=== PATIENT | male | born 1965 | race Caucasian/White ===

== ENCOUNTER 2024-11-08 14:07 | Emergency (ER) | payer OTHER, SELFPAY ==
--- OUTSIDE RECORDS SUMMARY | 2015-12-03 06:46 | XMS_ITS | Continuity of Care Document ---
Author Organization [facility] Address [address] [facility] [address] [place] [address] Phone Care Team Providers Care Clam Dredge Boat Captain Name Role Phone Brijesh Page MD Unavailable Unavailab le Allergies, Adverse Reactions, Alerts Substance Reaction Status Criticality No Known Allergies Active No Inform ation Medications Medication Instructions Dosage Effective Dates (start - stop) Status Comments LEXAPRO (unknown strength) Not Available - Active XARELTO (unknown strength) Not Available - Active Procedures Procedure Date OFFICE/OUTPATIENT VISIT [facility] Advance Directives Directive Yes / No Effective Date File Name No Information Encounters Encounter Description Practice Location Reason(s) For Visit Diagnoses Date Provider Providers Copied on Encounter [facility], [address] [place] [address], [address], tel:[phone] [facility] No Information 6 Kaylee Coley. [address] [facility] [address], [place], [place], [id number]. tel:[phone] OFFICE/OUTPA TIENT VISIT [facility], [address] [place] [address] [address], [place], [address], tel:[phone] [facility] EVAL LT SMALL FINGER (chief complaint) Contracture of joint of finger of left hand 6 Kaylee Coley. [address], [place], [place], [id number]. tel:[phone] Family History Family Member Type Diagnosis Age At Onset Mother Problem (finding) Alive and well Payers Payer name Insurance type Covered constitution party ID Authoriza tion(s) [email or web address] Employees E2 OT [id number] Social History Type Description Quantity Date Captured Comments Alcohol Use Details Unknown Caffeine Use Details Unknown Tobacco Use Status Smoking Status No Information Sex Male Chief Complaint And Reason For Visit No Information Reason For Referral Reason For Referral No Information Plan Of Treatment Date Type Action Status Referral Ordered: RADEX FNGR MINIMUM 2 VIEWS LT ordered Referral Ordered: RADEX FNGR MINIMUM 2 VIEWS RT ordered History Of Present Illness Encounter Date Complaint History Of Prese nt Illness EVAL LT SMALL FINGER Functional Status Date Functional Assessmen t No Information Instructions Date Instruction Additional Infor mation No Information Assessments Type Assessment Date No Information Patient Care Teams Name Effective Dates (start - stop) Status Members No Information
[2024-11-08 14:13] VITALS: BP 144/72; PULSE 73; RESP 16; TEMP 36.4; O2SAT 99; BMI 27.2
--- OUTSIDE RECORDS SUMMARY | 2024-11-08 14:14 | XMS_ITS | Clinical Summary ---
Author Organization [facility] Address [address] [facility] [place] [address] Care Team Providers Care Cash Clerk Name Role Phone ApolloPacotyler WAGNER Primary Care Provider [phone] Jany Gutierrez HYDRAULIC ELEVATOR CONSTRUCTOR-INSPECTOR GOLF BALL Unavailable [phone] Source Comments [facility],non-owned Affiliates and Associated Physician Practices is amultiple site organization consisting of ambulatory clinics and hospital sitesin [place], [place], [place] and [place]. This disclosure is being madepursuant to the Care Everywhere program and may not contain all information available regarding this patient. Last updated 17.[facility] Allergies No known active allergies Medications * Be aware that medications may not be up to date on this document. Alwaysverify current medications with the patient. cetirizine (ZyrTEC) 10 MG tablet Take 1 mg by mouth once daily Active Multiple Vitamin (MULTI VITAMIN MENS PO) Take 1 tablet by mouth once daily Active zolpidem (Ambien) 5 MG tabletIndications:P rimary insomnia Take 1 (one) tablet by mouth nightly as needed for Insomnia 30 tablet 3 Active rosuvastatin (Crestor) 10 MG tabletIndications:M ixed hyperlipidemia Take 1 (one) tablet by mouth once daily 100 tablet 4 4 Active escitalopram (Lexapro) 10 MG tabletIndications:M oderate episode of recurrent major depressive disorder (HCC) TAKE 1 TABLET BY MOUTH EVERY DAY 90 tablet 4 Active Xarelto 15 MG tabletIndications:R ecurrent pulmonary embolism (HCC) Take 1 Tablet (15 mg) by mouth daily. 90 tablet 3 5 Active baclofen (Lioresal) 10 MG tabletIndications:M uscle spasm,Left hamstring injury, initial encounter Take 1 Tablet (10 mg) by mouth 3 times daily as needed for Muscle Spasms. May cause drowsiness. 30 tablet 1 5 Active losartan (Cozaar) 100 MG tabletIndications:E ssential hypertension Take 1 (one) tablet by mouth once daily 100 tablet 5 Active Hospital, Clinic, or Other Facility Administered Medication Ordered Dose Route Frequency Start Date End Date Status 0.9% NaCl injection 10 mLIndications:Precordial pain 10 mL IK PRN 11/26/2021 Active Active Problems Problem Noted Date Diagnosed Date Type 2 diabetes mellitus wit h hyperglycemia, without long-term current use of insulin 02/07/2023 Precordial pain 10/22/2021 Bilateral carpal tunnel syndrome 02/19/2020 Paresthesia 12/31/2019 Overview (02/19/2020): Last Assessment & Plan: ncs BUE History of total knee replacement, right 019 Primary osteoarthritis of right knee 10/15/2018 Severe obesity (BMI 35.0-39.9) with comorbidity 10/15/2018 Essential hypertension 11/23/2017 Overview (02/19/2020): Last Assessment & Plan: Patient is well controlled. Continue current treatment. Hx of deep venous thrombosis 10/30/2017 Overview (02/19/2020): Last Assessment & Plan: Remains on xarelto Hx of pulmonary embolus 10/30/2017 Environmental and seasonal allergies 10/30/2017 Primary osteoarthritis of left knee 10/30/2017 Elevated cholesterol 06/30/2017 Anxiety and depression 03/22/2015 Overview (02/19/2020): Last Assessment & Plan: Patient is well controlled. Continue current treatment. Tobacco use 03/22/2015 Overview (02/19/2020): Last Assessment & Plan: Discussed screening CT chest Sleep apnea 10/18/2011 Obstructive sleep apnea 09/19/2011 Resolved Problems Problem Noted Date Diagnosed Date Resolved Date Hypersomnia with sleep apnea 04/26/2023 12/06/2023 Weight gain 04/26/2023 12/06/2023 Recurrent pulmonary embolism 12/24/2020 12/06/2023 Overview (12/24/2020): Chaim Bustillos DO on 09/25/20 Moderate episode of recurren t major depressive disorder 12/24/2020 12/06/2023 Overview (12/24/2020): Chaim Bustillos DO (Physician) : 09/25/2020 Acute blood loss as cause of postoperative anemia 02/19/2020 12/06/2023 Gout 02/19/2020 05/12/2022 Cellulitis 06/27/2019 12/06/2023 Overview (02/19/2020): Last Assessment & Plan: Keflex 250 mg qid 7 days Elbow pain, left 05/20/2019 05/12/2022 Overview (02/19/2020): Last Assessment & Plan: xr Lab Keflex 250 Annual physical exam 12/19/2018 024 Overview (02/19/2020): Last Assessment & Plan: Routine lab Obesity (BMI 35.0-39.9 without comorbidity) 10/15/2018 12/06/2023 Status post total left knee replacement using cement 04/27/2018 12/06/2023 Insomnia 06/30/2017 12/06/2023 Contracture of joint of finger 12/02/2015 12/06/2023 Encounters Date Type Department Care Team Description 10/17/2024 Travel 10/06/2024 Refill [facility] Medicine [address] [place] [address], [address] [place] [address] Chaim Bustillos DO Refill Request from Last 3 Months Immunizations Immunization Administration Dates Next Due INFLUENZA VACCINE, TRIV. (AF LURIA, FLUZONE TRIVALENT; 6MO+) (IIV3) 02/17/2011 Covid Pfizer primary monoval ent 12+ yr 0.3mL Purple cap 06/29/2020,06/08/2020 INFLUENZA VACCINE, QUADR. (F LUZONE; FLULAVAL; FLUARIX; AFLURIA QUADRIVALENT; 6MO+), 0.5 ML (IIV4) 03/24/2015 Zoster Hzv Vacc Recombinant Inj Im 12/06/2023 Family History Medical History Relation Name Comments Arthritis - Rheumatoid Father Other - Cardiac Father Diabetes; unknown type Mother Relation Name Status Comments Father Mother Social History Tobacco Use Types Packs/Day Years Used Date Smoking Tobacco: Every Day Cigarettes 1 35 Smokeless Tobacco: Never Tobacco Cessation:Ready to Q uit: Not Asked; Counseling Given: Not Answered Alcohol Use Standard Drinks/Week Comments Yes 0 (1 standard drink = 0.6 oz pur e alcohol) 2023 - 2X PER WEEK AUDIT-C Answer Date Recorded Q1: How often do you have a drink containing alcohol? 4 or more times a week 02/19/2020 Q2: How many drinks containi ng alcohol do you have on a typical day when you are drinking? 1 or 2 0 Frequency of Binge Drinking Not on file 02/08 PHQ-2 Answer Date Recorded Patient Health Questionnaire-2 Score 0 12/06/2023 Sex and Gender Information Value Date Recorded Sex Assigned at Male 05/20/2020 10:54 AM FIBERGLASS LAMINATOR Legal Sex Male 10:07 AM CDT Gender Identity Male 05/20/2020 10:54 AM FIBERGLASS LAMINATOR Sexual Orientation Straight 05/20/2020 10 :54 AM FIBERGLASS LAMINATOR Last Filed Vital Signs Vital Sign Reading Time Taken Comments Blood Pressure 135/86 12/06/2023 9:18 AM CDT Pulse 70 12/06/2023 9:18 AM CDT Temperature 36.7 C (98 F) 12/15/2022 2:41 PM CDT Respiratory Rate 18 12/06/2023 9:18 AM CDT Oxygen Saturation 96% 12/06/2023 9:18 AM CDT Inhaled Oxygen Concentration - - Weight 118.3 kg (260 lb 12.8 oz) 12/06/2023 9:18 AM CDT Height 177.8 cm (5' 10 ) 12/06/2023 9:18 AM CDT Body Mass Index 37.42 12/06/2023 9:18 AM CDT Plan of Treatment Health Maintenance Due Date Last Done Comments COLOGUARD (AGES 45-75) - COLON CA SCREENING 1965 CT COLONOGRAPHY - COLON CA SCREENING 1965 FIT - COLON CA SCREENING 1965 FLEX SIG - COLON CA SCREENING 1965 HIV SCREENING 02/06/1980 HEPATITIS C SCREENING 02/01/1983 DTAP/TDAP/TD VACCINES (1 - Tdap) 02/06/1984 HEPATITIS B VACCINE (1 of 3 - 19+ 3-dose series) 02/06/1984 PNEUMOCOCCAL VACCINE 50+ (1 of 2 - PCV) 02/06/1984 DIABETES RETINOPATHY SCREENING 12/07/2023 DIABETES-FOOT EXAM WITH MONOFILAMENT 12/07/2023 COVID-19 VACCINE (3 - 2023- season) 2023 06/29/2020, 06/08/2020 ZOSTER VACCINE (2 of 2) 01/31/2024 12/06/2023 DEPRESSION SCREENING 04/10/2024 12/06/2023, 12/15/2022, 12/15/2022, Additional history exists DIABETES - URINE PROTEIN SCREENING 04/10/2024 DIABETES-HGB A1C 06/07/2024 12/06/2023, , 10/02/2020 DIABETES-SERUM CREATININE 12/05/20242023, 12/21/2022, 10/18/2021, Additional history exists INFLUENZA VACCINE (#1) 2024 03/24/2015, 2010 LUNG CANCER SCREENING 06/27/2025 06/27/2024 , 06/27/2024, 03/14/2020 COLON MONITORING 03/01/2029 03/01/2019 COLONOSCOPY - COLON CA SCREENING 03/01/2029 03/01/2019, 03/01/2019 (Done Outside Per Report) Colorectal Cancer Screening 03/01/2029 HIB VACCINE Aged Out No longer eligi ble based on patient's age to complete this topic HPV VACCINE Aged Out No longer eligi ble based on patient's age to complete this topic MENINGOCOCCAL (Group B) VACCINE SHARED DECISION-MAKING Aged Out No longer eligible based on patient's age to complete this topic MENINGOCOCCAL GROUPS A/C/Y/W VACCINE Aged Out No longer eligible based on patient's age to complete this topic Procedures Procedure Name Priority Date/Time Associated Diagnosis Comments COMPREHENSIVE METABOLIC PANEL Routine 12/06/2023 10:30 AM CDT Well adult exam HEMOGLOBIN A1C Routine 12/06/2023 10:30 AM CDT Well adult exam Prediabetes CT LUNG SCREEN LOW DOSE Routine 03/14/2020 9:33 AM FIBERGLASS LAMINATOR Cigarette nicotine dependence without complication Encounter for screening for lung cancer COLONOSCOPY 03/01/2019 from Last 3 Months or Most Recently Relevant to Health Maintenance Results * (ABNORMAL) HEMOGLOBIN A1C (12/06/2023 10:30 AM CDT) Hemoglobin A1c 6.8(H) <5.7 % of total Hgb [facility] Comment: For someone without known diabetes, a hemoglobin A1c value of 6.5% or greater indicates that they may have diabetes and this should be confirmed with a follow-up test. For someone with known diabetes, a value <7% indicates that their diabetes is well controlled and a value greater than or equal to 7% indicates suboptimal control. A1c targets should be individualized based on duration of diabetes, age, comorbid conditions, and other considerations. Currently, no consensus exists regarding use of hemoglobin A1c for diagnosis of diabetes for children. This test was performed on the Sumi skip c503 platform. Effective 06/26/23, a change in test platforms from the [employer] Neck Fitter to the Sumi skip c503 may have shifted HbA1c results compared to historical results. Based on laboratory validation testing conducted at [facility], the Sumi platform relative to the [employer] platform had an average increase in HbA1c value of < or = 0.3%. This difference is within accepted variability established by the National Glycohemoglobin Standardization Program. Note that not all individuals will have had a shift in their results and direct comparisons between historical and current results for testing conducted on different platforms is not recommended. REPORT COMMENT: FASTING:YES Test Performed at: [facility] [address] ELSI MURPHY MD Blood BLOOD SPECIMEN / Unknown 12/06/2023 10:30 AM CDT 12/06/2023 10:31 AM CDT Chaim [place] DO LAB - CHEMISTRY ORDERABLES Fin al Result Performing Organization Address [facility] Co de Phone Number [facility] [address] [place] [address] * COMPREHENSIVE METABOLIC PANEL (12/06/2023 10:30 AM CDT) [facility] Glucose 99 65 - 99 mg/dL [facility] Comment: Fasting reference interval BUN 16 7 - 25 mg/dL [facility] Creatinine 0.85 0.70 - 1.30 mg/dL [facility] eGFR by Cystatin C 101 > OR = 60 mL/min/1. 73m2 [facility] BUN/Creatinine Ratio SEE NOTE: 6 - 22 (calc) [facility] Comment: Not Reported: BUN and Creatinine are within reference range. Sodium 136 135 - 146 mmol/L [facility] Potassium 4.0 3.5 - 5.3 mmol/L [facility] Chloride 100 98 - 110 mmol/L [facility] CO2 23 20 - 32 mmol/L [facility] Calcium 9.4 8.6 - 10.3 mg/dL [facility] Protein Total 6.6 6.1 - 8.1 g/dL [facility] Albumin 4.3 3.6 - 5.1 g/dL [facility] Globulin Total 2.3 1.9 - 3.7 g/dL (calc) [facility] Albumin/Globulin Ratio 1.9 1.0 - 2.5 (calc) [facility] Bilirubin Total 0.5 0.2 - 1.2 mg/dL [facility] Alkaline Phosphatase 71 35 - 144 U/L [facility] AST 29 10 - 35 U/L [facility] ALT 33 9 - 46 U/L [facility] Comment: Test Performed at: [facility] [address] [id number] ELSI MURPHY MD Blood BLOOD SPECIMEN / Unknown 12/06/2023 10:30 AM CDT 12/06/2023 10:31 AM CDT Chaim Apollo DO LAB - CHEMISTRY ORDERABLES Fin al Result Performing Organization Address [facility] de Phone Number [facility] [address] [place] [address] * CT LUNG SCREEN LOW DOSE (03/14/2020 9:33 AM FIBERGLASS LAMINATOR) Anatomical Region Laterality Modality Chest Computed Tomogra phy 03/14/2020 9:44 AM FIBERGLASS LAMINATOR Impressions 03/14/2020 9:46 AM FIBERGLASS LAMINATOR No suspicious pulmonary nodules. Lung-RADS category 1-negative. 12 month follow-up low-dose CT is recommended. ACR Lung-RADS Category/Recommendations: 0: Need prior comparisons or additional images 1: Negative: 12 month follow up LDCT (Low Dose CT) 2: Benign Appearin month follow up LDCT 3: Probably Benign: 6 month follow up LDCT 4A: Suspicious: 3 month follow up LDCT (or immediate PET if >7mm solid component) 4B: Suspicious: Immediate Chest CT or PET if >7mm solid component 4X: Cat 3 or 4A nodules with additional suspicious findings Modifier- S : Significant NON-lung cancer findings Modifier- C : Prior treated Lung Cancer. For details of the ACR Lung-RADS program, categories and recommendations: 1) http://www.acr.org/Quality-Safety/Resources/LungRADS 2) Internet search: Lung-RADS Lung Cancer Screening 3) Contact [facility] thoracic nurse coordinator ([phone]) *Reading Radiologist: Priyank Hernandez on 03/14/2020 at 9:46 AM Narrative 03/14/2020 9:[address] chest without contrast. HISTORY: Lung Cancer Screening. Current everyday smoker. 1 pack a day for 35 years. 35 pack year smoking history. TECHNIQUE: Helical CT acquisition of chest without intravenous iodinated contrast. Low dose technique optimized for lung nodule detection. COMPARISON: None. FINDINGS: There is no suspicious pulmonary nodule or mass. Mild bronchial wall thickening is noted. No acute airspace disease seen. There is no supraclavicular or axillary lymphadenopathy. No mediastinal or hilar lymphadenopathy. Calcific plaque is noted in the coronary arteries. No pleural pericardial effusion. Limited views of the upper abdomen unremarkable. Procedure Note Priyank Hernandez MD - 03/14/2020 CT chest without contrast. HISTORY: Lung Cancer Screening. Current everyday smoker. 1 pack a day for 35 years. 35 pack year smoking history. TECHNIQUE: Helical CT acquisition of chest without intravenous iodinated contrast. Low dose technique optimized for lung nodule detection. COMPARISON: None. FINDINGS: There is no suspicious pulmonary nodule or mass. Mild bronchial wall thickening is noted. No acute airspace disease seen. There is no supraclavicular or axillary lymphadenopathy. No mediastinal or hilar lymphadenopathy. Calcific plaque is noted in the coronary arteries. No pleural pericardial effusion. Limited views of the upper abdomen unremarkable. IMPRESSION No suspicious pulmonary nodules. Lung-RADS category 1-negative. 12 month follow-up low-dose CT is recommended. ACR Lung-RADS Category/Recommendations: 0: Need prior comparisons or additional images 1: Negative: 12 month follow up LDCT (Low Dose CT) 2: Benign Appearin month follow up LDCT 3: Probably Benign: 6 month follow up LDCT 4A: Suspicious: 3 month follow up LDCT (or immediate PET if >7mm solid component) 4B: Suspicious: Immediate Chest CT or PET if >7mm solid component 4X: Cat 3 or 4A nodules with additional suspicious findings Modifier- S : Significant NON-lung cancer findings Modifier- C : Prior treated Lung Cancer. For details of the ACR Lung-RADS program, categories and recommendations: 1) http://www.acr.org/Quality-Safety/Resources/LungRADS 2) Internet search: Lung-RADS Lung Cancer Screening 3) Contact [facility] thoracic nurse coordinator ([phone]) *Reading Radiologist: Priyank Hernandez on 03/14/2020 at 9:46 AM Chaim Bustillos DO CT ORDERABLES Final Result * COLONOSCOPY (03/01/2019) 03/01/2019 Narrative 03/01/2019 Ordered by an unspecified provider. us Scanned Document SCANNING ONLY Final Result from Last 3 Months or Most Recently Relevant to Health Maintenance Insurance [facility] Care Teams Cash Clerk Relationship Specialty Start Date End Date Chaim Bustillos DO [address] [address] PCP - General Family Medicine 02/12/20 Jany Gutierrez, MICHELLE-INSPECTOR GOLF BALL [address] [facility] [address] [place] [id number] Nurse Practitioner Internal Medicine Sleep Medicine 04/26/23
--- OUTSIDE RECORDS SUMMARY | 2024-11-08 14:14 | XMS_ITS | Clinical Summary ---
Author Organization [facility] Address [address] [place] [address] Care Team Providers Care Nuclear Logging Engineer Name Role Phone Unavailable Primary Care Provider Unavailabl e Social History Tobacco Use Types Packs/Day Years Used Date Smoking Tobacco: Never Assessed Sex and Gender Information Value Date Recorded Sex Assigned at Not on file Legal Sex Male 4:30 PM CDT Gender Identity Not on file Sexual Orientation Not on file Plan of Treatment Health Maintenance Due Date Last Done Comments Colorectal Cancer Screening Colonoscopy (10 Years) 1965 Annual Physical 02/06/1968 Hepatitis C 1983 DTaP, Tdap and Td Vaccines ( 1 - Tdap) 02/06/1984 Pneumococcal Vaccine: 50+ Ye ars (1 of 1 - PCV) 2015 Zoster Vaccines (1 of 2) 2015 COVID-19 Vaccine ( - 2023-2 5 season) 2023 Meningococcal B Vaccine Aged Out No l onger eligible based on patient's age to complete this topic Meningococcal Vaccine Aged Out No jami niesha eligible based on patient's age to complete this topic RSV Immunizations Under 20 Months Aged Out No longer eligible based on patient's age to complete this topic
--- OUTSIDE RECORDS SUMMARY | 2024-11-08 14:15 | XMS_ITS | Clinical Summary ---
Author Organization [facility] at the [facility] Address [address] [place] [address] Care Team Providers Care Produce Clerk Name Role Phone Elver Beebe Jonatan Primary Care Provider + Allergies No known active allergies Medications escitalopram (LEXAPRO) 10 mg tablet Take 1 tablet (10 mg total) by mouth daily 90 tablet 3 9 Active Additional Information Patient not taking.Reported on 12/31/2019 zolpidem (AMBIEN) 5 mg tablet Take 1 Tablet (5 mg) by mouth daily at bedtime. 30 tablet 5 0 Active cyclobenzaprine HCl (FLEXERIL ORAL) 10 mg 2 (two) times a day 8 Active cephalexin (KEFLEX) 250 mg capsule Take 250 mg by mouth 4 (four) times a day 0 Active cetirizine (ZyrTEC) 5 mg tablet Take 5 mg by mouth daily Active Xarelto 15 mg tablet TAKE 1 TABLET BY MOUTH DAILY 30 tablet 1 Active losartan (COZAAR) 50 mg tablet TAKE 1 TABLET BY MOUTH DAILY 90 tablet 1 1 Active Active Problems Problem Noted Date Diagnosed Date Paresthesia 12/31/2019 Assessment & Plan (12/31/2019 4:34 PM CDT): ncs BUE Cellulitis 06/27/2019 Assessment & Plan (10/17/2019 8:13 AM CDT): Keflex 250 mg qid 7 days Assessment & Plan (06/27/2019 11:41 AM CDT): Keflex 250 qid 10 days Lasix 20 mg daily 1 week bnp cbc Elbow pain, left 05/20/2019 Assessment & Plan (05/20/2019 2:55 PM AEROSPACE TECHNICIAN): xr Lab Keflex 250 Annual physical exam 12/19/2018 Assessment & Plan (12/19/2018 8:55 AM CDT): Routine lab Essential hypertension 11/23/2017 Assessment & Plan (12/31/2019 4:34 PM CDT): Patient is well controlled. Continue current treatment. Assessment & Plan (12/19/2018 8:55 AM CDT): Patient is well controlled. Continue current treatment. Hx of deep venous thrombosis 10/30/2017 Assessment & Plan (12/19/2018 8:56 AM CDT): Remains on xarelto Hx of pulmonary embolus 10/30/2017 Elevated cholesterol 06/30/2017 Insomnia 06/30/2017 Anxiety and depression 03/22/2015 Assessment & Plan (12/19/2018 8:55 AM CDT): Patient is well controlled. Continue current treatment. Tobacco use 03/22/2015 Assessment & Plan (12/31/2019 4:41 PM CDT): Discussed screening CT chest Obstructive sleep apnea 09/19/2011 Immunizations Immunization Administration Dates Next Due Influenza, Quadrivalent, Spl it, Preservative Free, Intramuscular 03/24/2015 Influenza, Trivalent, IM (MDV) 02/17/2011 Surgical History Surgery Date Site/Laterality Comments KNEE SURGERY Bilateral ANTERIOR CRUCIATE LIGAMENT REPAIR Bilateral Left twice, right once COLONOSCOPY 06/09/2015 - 07/09/2015 REPLACEMENT TOTAL KNEE 10/08/2017 - 11/07/2017 Left REPLACEMENT TOTAL KNEE 03/04/2019 Right Medical History Medical History Date Comments Hypertension Hyperlipidemia Family History Medical History Relation Name Comments Cancer Brother 1 ad Irritable bowel syndrome Daughter Heart disease Father Hypertension Father Diabetes Mother Heart disease Mother Hypertension Mother Relation Name Status Comments Brother 1 ad Brother 2 Alive Daughter Alive Father Mother Sister 1 Alive Sister 2 Alive Son 1 Alive Son 2 Alive Social History Tobacco Use Types Packs/Day Years Used Date Smoking Tobacco: Every Day Cigarettes Smokeless Tobacco: Never Alcohol Use Standard Drinks/Week Comments Yes 0 (1 standard drink = 0.6 oz pur e alcohol) occasionally PHQ-2 Answer Date Recorded PHQ-2 Total Score (If total score is 3 or more points, staff should administer the PHQ-9) 0 12/31/2019 Personal Safety Answer Date Recorded Getting School Help Needed Not on file 06/24 Sex and Gender Information Value Date Recorded Sex Assigned at Not on file Legal Sex Male 6:27 PM AEROSPACE TECHNICIAN Gender Identity Not on file Sexual Orientation Not on file Obstetrics History Last Filed Vital Signs Vital Sign Reading Time Taken Comments Blood Pressure 142/84 12/31/2019 4:36 PM CDT Pulse 86 12/31/2019 3:46 PM CDT Temperature 36.4 C (97.5 F) 12/31/2019 3:46 PM CDT Respiratory Rate 16 10/17/2019 7:49 AM CDT Oxygen Saturation 98% 12/31/2019 3:46 PM CDT Inhaled Oxygen Concentration - - Weight 112.8 kg (248 lb 9.6 oz) 12/31/2019 3:46 PM CDT Height 177.8 cm (5' 10 ) 12/31/2019 3:46 PM CDT Body Mass Index 35.67 12/31/2019 3:46 PM CDT Plan of Treatment Not on file Insurance [employer] PREFERRED Member Subscriber Plan / Payer (Ef fective 2019-Present) Name:Jalen Quintanilla Relation to Subscriber:Self Name:Jalen Quintanilla Payer ID:[id number] ([facility]) Type:[facility] Address: [id number] [place] [id number] Care Teams Produce Clerk Relationship Specialty Start Date End Date Elver Beebe DO PCP - General Family Medicine 12/12/18
--- OUTSIDE RECORDS SUMMARY | 2024-11-08 14:15 | XMS_ITS | Encounter Summary ---
Author Organization [facility] Facility Care Team Providers Care Emergency Room Tech Name Role Phone Elver Beebe DO Primary Care Provider + Encounter Details Date Type Department Care Team (Latest Contact Info) Description 04/09/2015 Orders Only [facility]INCON[facility] Provider, MD Abner [address] [place] [id number] Social History Tobacco Use Types Packs/Day Years Used Date Smoking Tobacco: Never Assessed Sex and Gender Information Value Date Recorded Sex Assigned at Not on file Legal Sex Male 6:27 PM FACILITIES COORDINATOR Gender Identity Not on file Sexual Orientation Not on file documented as of this encounter Plan of Treatment Not on file documented as of this encounter Procedures Procedure Name Priority Date/Time Associated Diagnosis Comments SCAN - LABS 04/09/2015 12:00 AM FACILITIES COORDINATOR documented in this encounter Results * SCAN - LABS (04/09/2015 12:00 AM FACILITIES COORDINATOR) Narrative 04/09/2015 12:00 AM FACILITIES COORDINATOR Ordered by an unspecified provider. Historical Provider Final Res ult documented in this encounter Visit Diagnoses Not on filedocumented in this encounter Care Teams Emergency Room Tech Relationship Specialty Start Date End Date Elver Beebe DO PCP - General Family Medicine 12/12/18 documented as of this encounter
--- OUTSIDE RECORDS SUMMARY | 2024-11-08 14:15 | XMS_ITS | Clinical Summary ---
Author Organization 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 Active escitalopram oxalate (LEXAPRO) 10 mg tablet Take 1 Tablet (10 mg) by mouth daily. 90 Tablet 1 12/20/2023 6:09 PM CDT 4 Active rosuvastatin (CRESTOR) 10 mg tablet Take 1 Tablet (10 mg) by mouth daily. 100 Tablet 4 10/09/2024 12:47 PM CDT 4 Active rivaroxaban (Xarelto) 15 mg Tablet Take 1 Tablet (15 mg) by mouth daily. 90 Tablet 3 10/09/2024 12:47 PM CDT 5 Active acetaminophen (TYLENOL) 325 mg tablet Take 2 Tablets (650 mg) by mouth every 6 hours as needed for Other (See Comment) (See admin instructions ). 5 Active simethicone 125 mg Tablet, Chewable Take 1 Tablet (125 mg) by mouth every 6 hours as needed for Gas. 5 Active oxyCODONE (ROXICODONE) 5 mg tabletIndications :Acute appendicitis with localized peritonitis, without perforation or abscess, unspecified whether gangrene present Take 1 Tablet (5 mg) by mouth every 4 hours as needed for severe pain. Max Daily Amount: 30 mg 20 Tablet 08/25/2024 10:44 AM CDT 5 Active baclofen (LIORESAL) 10 mg tablet Take 1 Tablet (10 mg) by mouth 3 times daily as needed for Muscle Spasms. May cause drowsiness. 30 Tablet 1 10/07/2024 2:46 PM CDT 5 Active baclofen (LIORESAL) 10 mg tablet Take 1 Tablet (10 mg) by mouth 3 times daily as needed for muscle spasms. May cause drowsiness. 30 Tablet 1 5 Active losartan (COZAAR) 100 mg tablet Take 1 Tablet (100 mg) by mouth daily. 90 Tablet 5 Active losartan (COZAAR) 100 mg tablet Take 1 Tablet (100 mg) by mouth daily. 90 Tablet 1 5 Active baclofen (LIORESAL) 10 mg tablet Take 1 Tablet (10 mg) by mouth 3 times daily as needed for Muscle Spasms. May cause drowsiness. 30 Tablet 5 Active zolpidem (AMBIEN) 5 mg tablet Take 1 Tablet (5 mg) by mouth every night at bedtime. 30 Tablet 5 10/09/2024 12:47 PM CDT 5 Active Active Problems Problem Noted Date Diagnosed Date DUKES (dyspnea on exertion) 09/04/2024 Coronary artery calcification 09/04/2024 Acute appendicitis 08/20/2024 History of total knee replacement, right 019 Primary osteoarthritis of right knee 10/15/2018 Obesity (BMI 35.0-39.9 without comorbidity) 11/2018 Severe obesity (BMI 35.0-39.9) with comorbidity 10/15/2018 Status post total left knee replacement using ce ment 04/27/2018 Hx of deep venous thrombosis 10/30/2017 Hx of pulmonary embolus 10/30/2017 Primary osteoarthritis of left knee 10/30/2017 Environmental and seasonal allergies 10/30/2017 Tobacco use 03/22/2015 Anxiety and depression 03/22/2015 Sleep apnea 10/18/2011 Obstructive sleep apnea 09/19/2011 Gout Acute blood loss as cause of postoperative anemi a Resolved Problems Problem Noted Date Diagnosed Date Resolved Date Bilateral pulmonary embolism 03/22/2015 10/30/2017 Pain of left calf 03/22/2015 10/30/2017 Left knee pain 03/22/2015 10/30/2017 PE (pulmonary embolism) 10/20/201110/09 DVT of lower limb, acute 10/18/2011 Edema 10/18/2011 10/30/2017 Snoring 09/19/2011 10/30/2017 Encounters Date Type Department Care Team Description 11/07/2024 Results Follow-Up [facility] Gastroenterology [facility] [address] [facility] [address] [place] [address] Renato Barrientos, DO PATHOLOGY 10/29/2024 External Device Data STL ABSTRACTION Provider, Abstract 10/29/2024 External Device Data STL ABSTRACTION Provider, Abstract 10/23/2024 10:34 AM CDT Anesthesia Event [facility] GI Lab [facility] [address] [place] [address] Cory Hernandez MD 10/23/2024 10:00 AM CDT - 10/23/2024 10:30 AM CDT Surgery [facility] GI Lab [facility] [address] [place] [address] Renato Barrientos, DO COLONOSCOPY 10/23/2024 9:05 AM CDT - 10/23/2024 11:42 AM CDT Hospital Encounter [facility] GI Lab [place] [address] [place] [address] Renato Barrientos, DO Hx of colonic polyps Discharge Disposition: Home or Self Care 10/15/2024 External Device Data STL ABSTRACTION Provider, Abstract 09/25/2024 External Device Data STL ABSTRACTION Provider, Abstract 09/25/2024 External Device Data STL ABSTRACTION Provider, Abstract 09/24/2024 External Device Data STL ABSTRACTION Provider, Abstract 09/17/2024 External Device Data STL ABSTRACTION Provider, Abstract 09/17/2024 External Device Data STL ABSTRACTION Provider, Abstract 09/11/2024 Results Follow-Up [facility] Heart and Vascular At [facility] [address] [place] [address] Bj Cerrato MD NM MYOCARD PERF IMAG SPECT MULT 09/10/2024 1:47 PM CDT - 09/10/2024 11:59 PM CDT Hospital Encounter [facility] [address] [place] [address] Bj Cerrato MD Discharge Disposition: Home or Self Care 09/10/2024 1:13 PM CDT - 09/10/2024 11:59 PM CDT Hospital Encounter [facility] Non Invasive Cardiology [address] [place] [address] Bj Cerrato MD Discharge Disposition: Home or Self Care 09/10/2024 12:30 PM CDT - 09/10/2024 11:59 PM CDT Hospital Encounter [address] [address] Bj Cerrato MD Discharge Disposition: Home or Self Care 09/10/2024 External Device Data STL ABSTRACTION Provider, Abstract 09/10/2024 External Device Data STL ABSTRACTION Provider, Abstract 09/10/2024 External Device Data STL ABSTRACTION Provider, Abstract 09/05/2024 9:15 AM CDT Office Visit [facility] Trauma and General Surgery [address] [place] [address] [place] [phone] Mildred Harrison MD Acute appendicitis with localized peritonitis, without perforation or abscess, unspecified whether gangrene present (Primary Dx); Status post exploratory laparotomy 09/04/2024 10:15 AM CDT Office Visit [facility] Heart and Vascular At [place] [address] [facility] [address] [place] [address] Bj Cerrato MD DUKES (dyspnea on exertion) (Primary Dx); Hx of deep venous thrombosis; Coronary artery calcification 09/04/2024 Abstract [facility] Trauma and General Surgery [address] [place] [address] [place] [phone] Dipak Allen MD 08/30/2024 External Device Data STL ABSTRACTION Provider, Abstract 08/28/2024 External Device Data STL ABSTRACTION Provider, Abstract 08/21/2024 7:30 AM CDT Anesthesia Event [facility] Operating Room [address] [place] [address] Allison Fall MD Turnbough, Christopher J, PA 08/21/2024 7:15 AM CDT - 08/21/2024 9:07 AM CDT Surgery [facility] Operating Room [address] [place] [address] Partha Mock, MD Yong APPENDECTOMY 08/20/2024 External Device Data STL ABSTRACTION Provider, Abstract 08/20/2024 External Device Data STL ABSTRACTION Provider, Abstract 08/20/2024 External Device Data STL ABSTRACTION Provider, Abstract 08/19/2024 11:08 PM CDT - 08/25/2024 11:00 AM CDT Hospital Encounter [facility] Trauma and Surgery [address] [place] [address] Colton MARCH, Harsha Vogel, DO Amezquita, Simin De La Paz MD Respicio, MD Momo Quesada, MD Partha Angel Jr., Eddie, MD Bach, Mildred Macdonald MD Acute appendicitis Discharge Disposition: Home or Self Care 08/19/2024 Travel 08/13/2024 Abstract [facility] Hepatology [address] [place] [address] Edd Stark MD from Last 3 Months Immunizations Immunization Administration Dates Next Due INFLUENZA VACCINE QUADRIVALENT 3 YR UP PF IM Influenza Seasonal Unspecified Formulation IM Family History Medical History Relation Name Comments Hypertension Father Hypertension Maternal Grandfather Hypertension Maternal Grandmother Diabetes Mother Hypertension Mother Hypertension Paternal Grandfather Hypertension Paternal Grandmother Asthma Neg Hx Bronchitis Neg Hx Cancer Neg Hx Colon Cancer Neg Hx Emphysema Neg Hx Heart Failure Neg Hx Lung Cancer Neg Hx Mesothelioma Neg Hx Relation Name Status Comments Father Maternal Grandfather Maternal Grandmother Mother Paternal Grandfather Paternal Grandmother Social History Tobacco Use Types Packs/Day Years Used Date Smoking Tobacco: Former Cigarettes 1 30 Passive Smoke Exposure: Past Smokeless Tobacco: Never Tobacco Cessation:Counseling Given: Not Answered Comments:Quit May, 2024 Alcohol Use Standard Drinks/Week Comments Yes 4 (1 standard drink = 0.6 oz pur e alcohol) daily to weekly Sex and Gender Information Value Date Recorded Sex Assigned at Not on file Legal Sex Male 3:17 AM PATIENT ADMITTING REPRESENTATIVE Gender Identity Not on file Sexual Orientation Not on file Occupation Industry Job Start Date Job End Date Not on file Not on file Not on file Not on file Last Filed Vital Signs Vital Sign Reading Time Taken Comments Blood Pressure 127/79 10/23/2024 11:35 AM CDT Pulse 62 10/23/2024 11:35 AM CDT Temperature 36.1 C (96.9 F) 10/23/2024 11:21 AM CDT Respiratory Rate 18 10/23/2024 11:35 AM CDT Oxygen Saturation 100% 10/23/2024 11:35 AM CDT Inhaled Oxygen Concentration - - Weight 88.5 kg (195 lb) 10/23/2024 9:23 AM CDT Height 177.8 cm (5' 10 ) 10/23/2024 9:23 AM CDT Body Mass Index 27.98 10/23/2024 9:23 AM CDT Plan of Treatment Upcoming Encounters Date Type Department Care Team (Late st Contact Info) Description 01/02/2025 9:30 AM CDT Initial consult [facility] Hepatology [address] [place] [address] Edd Stark MD [address] [facility] [place] [address] 09/05/2025 10:45 AM CDT Office Visit [facility] Heart and Vascular At [facility] [address] [address] [place] [address] Bj Cerrato MD [address] [place] [address] Health Maintenance Due Date Last Done Comments DIABETES ANNUAL FOOT EXAM 1983 DIABETES ANNUAL RETINAL EXAM 1983 DIABETES MICROALBUMIN ANNUAL SCREEN 1983 LDL CHOLESTEROL ANNUAL 1983 DTAP/TDAP/TD VACCINES (1 - Tdap) 02/06/1984 HEPATITIS B VACCINES (1 of 3 - 19+ 3-dose series) 02/06/1984 FIT-DNA Q 3 years 2010 FIT/FOBT Q 1 year 2010 Flex Sig/CT Colonography Q 5 years 2010 COVID-19 Vaccine (3 - 2023-2 5 season) 2023 06/29/2020, 06/08/2020 ZOSTER VACCINE (2 of 2) 01/31/2024 12/06/2023 INFLUENZA VACCINE (#1) 2024 03/24/2015, 2010 DIABETES HBA1C Q 6 MONTHS 11/13/20242024, 12/06/2023, 10/02/2020 COLORECTAL SCREENING 10/23/2029 10/23/2024, 10/23/2024, 03/01/2019, Additional history exists Colorectal Cancer Screening 10/23/2029 Preventative Visit- Commercial Completed 0 05/01/2024, 12/06/2023, 07/07/2021, Additional history exists Lung Cancer Screening Discontinued 06/27/2024 Medical Devices Implanted Type Area Online Facilitator Device Identifier Shelf Expiration Date Model / Serial / Lot Barrier Seprafilm 3x5in [id number] - [id number] Implanted:Qty : 1 on 08/21/2024 by Yong Chavis Jr., MD at [facility] Adhesion Barrier N/A: Abdomen [employer] [id number] / / [id number] Cement Leggett Hv 40g [id number] - [id number] Implanted:Qty : 2 on 10/30/2017 by Angel Bush MD at [facility] Cement Left: Knee [employer] 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 [employer] 01/07/2019 600-15-000 / / [id number] Biomet Bone Cement Implanted:Qty : 2 on 03/04/2019 by Agnel Bush MD at [facility] Cement Right: Knee [employer]OM[employer] INC 01/07/2023 [id number] / / [id number] Description:ALL ROHAN BIOME T COMPONETS ON REQUISTION # [id number] Agent Hemostat Surgicel 4x8in 1952s - [id number] Implanted:Qty : 1 on 08/21/2024 by Yong Chavis Jr., MD at [facility] Hemostatic N/A: Abdomen J&J- [employer] [id number] 02/07/2029 1952S / / [id number] Comp Tib Cocr Finned 79mm 400115 - [id number] Implanted:Qty : 1 on 10/30/2017 by Angel Bush MD at [facility] Knee Left: Knee ROHAN [employer]ET [id number] 08/12/2027 [id number] / / [id number] Comp Fem Vngrd Cr Intrlk Lt 75mm 225968 - [id number] Implanted:Qty : 1 on 10/30/2017 by Angel Bush MD at [facility] Knee Left: Knee [employer]OHAN [employer] [id number] 08/26/2027 [id number] / / [id number] Patella 3peg Series A [id number] - [id number] Implanted:Qty : 1 on 10/30/2017 by Angel Bush MD at [facility] Knee Left: Knee ROHAN [employer] [id number] 09/05/2022 [id number] / / [id number] Brg Tib Vngrd Ant Stblzd 193050 - [id number] Implanted:Qty : 1 on 10/30/2017 by Angel Bush MD at [facility] Knee Left: Knee ROHAN [employer] [id number] 07/25/2022 [id number] / / [id number] Bearing Tib Vanguard Ant Stblzd 954644 - [id number] Implanted:Qty : 1 on 03/04/2019 by Angel Bush MD at [facility] Knee Right: Knee ROHAN [employer]ET [id number] 10/05/2023 [id number] / / [id number] Patella 3peg Series A [id number] - [id number] Implanted:Qty : 1 on 03/04/2019 by Angel Bush MD at [facility] Knee Right: Knee ROHAN [employer]ET 02/14/2024 [id number] / / [id number] Comp Fem Vanguard Cr Interlock Rt 72.5mm [id number] - [id number] Implanted:Qty : 1 on 03/04/2019 by Angel Bush MD at [facility] Knee Right: Knee ROHAN [employer]ET [id number] 02/08/2029 [id number] / / [id number] Comp Tib Cocr Finned 79mm [id number] - [id number] Implanted:Qty : 1 on 03/04/2019 by Angel Bush MD at [facility] Knee Right: Knee ROHAN BIOMET 01/14/2029 [id number] / / [id number] Procedures Procedure Name Priority Date/Time Associated Diagnosis Comments COLONOSCOPY REPORT 10/23/2024 11 :24 AM CDT PATHOLOGY Pathology 10/23/2024 11:11 AM CDT Hx of colonic polyps MA COLONOSCOPY FLX DX W/COLLJ SPEC WHEN PFRMD 10/23/2024 10:00 AM CDT Hx of colonic polyps NM MYOCARD PERF IMAG SPECT MULT Routine 09/10/2024 2:11 PM CDT Hx of deep venous thrombosis DUKES (dyspnea on exertion) Coronary artery calcification NM PHARMACOLOGICAL STRESS TEST Routine 09/10/2024 1:49 PM CDT Hx of deep venous thrombosis DKUES (dyspnea on exertion) Coronary artery calcification MA ECG ROUTINE ECG W/LEAST 12 LDS W/I&R Routine 09/04/2024 10:31 AM CDT Hx of deep venous thrombosis BASIC METABOLIC PANEL Routine 08/25/2024 8:48 AM CDT CBC WITH DIFFERENTIAL Routine 08/25/2024 8:48 AM CDT MAGNESIUM LEVEL Routine 08/25/2024 8:48 AM CDT PHOSPHORUS Routine 08/25/2024 8:48 AM CDT BASIC METABOLIC PANEL Routine 08/24/2024 9:51 AM CDT CBC WITH DIFFERENTIAL Routine 08/24/2024 9:51 AM CDT MAGNESIUM LEVEL Routine 08/24/2024 9:51 AM CDT PHOSPHORUS Routine 08/24/2024 9:51 AM CDT BASIC METABOLIC PANEL Routine 08/23/2024 9:18 AM CDT CBC WITH DIFFERENTIAL Routine 08/23/2024 9:18 AM CDT MAGNESIUM LEVEL Routine 08/23/2024 9:18 AM CDT PHOSPHORUS Routine 08/23/2024 9:18 AM CDT BASIC METABOLIC PANEL Routine 08/22/2024 8:04 AM CDT CBC WITH DIFFERENTIAL Routine 08/22/2024 8:04 AM CDT MAGNESIUM LEVEL Routine 08/22/2024 8:04 AM CDT PHOSPHORUS Routine 08/22/2024 8:04 AM CDT BASIC METABOLIC PANEL Routine 08/21/2024 12:51 PM CDT CBC WITH DIFFERENTIAL Routine 08/21/2024 12:51 PM CDT MAGNESIUM LEVEL Routine 08/21/2024 12:51 PM CDT PHOSPHORUS Routine 08/21/2024 12:51 PM CDT PATHOLOGY Pathology 08/21/2024 9:09 AM CDT MA ANES INSERT ENDOTRACHEAL AIRWAY Routine 08/21/2024 7:44 AM CDT LAPAROTOMY EXPLORATORY 7:15 AM CDT LAPAROSCOPY DIAGNOSTIC/OPERATIVE 08/21/2024 7:15 AM CDT WOUND CLOSURE VACUUM ASSISTED 08/21/2024 7:15 AM CDT APPENDECTOMY 08/21/2024 7:15 AM CDT URINALYSIS W/REFLEX MICROSCOPIC Stat 08/21/2024 12:03 AM CDT PTT Stat 08/20/2024 5:05 AM CDT PROTIME-INR Stat 08/20/2024 5:[address] ABDOMEN PELVIS W CONTRAST Stat 08/20/2024 3:02 AM CDT CBC WITH DIFFERENTIAL Stat 08/20/2024 12:58 AM CDT COMPREHENSIVE METABOLIC PANEL Stat 08/20/2024 12:55 AM CDT TYPE AND SCREEN Stat 08/20/2024 12:[address] LUNG SCREENING (LDCT BASELINE OR ANNUAL) Routine 06/27/2024 8:19 AM CDT Personal history of tobacco use, presenting hazards to health from Last 3 Months or Most Recently Relevant to Health Maintenance Results * COLONOSCOPY REPORT (10/23/2024 11:24 AM CDT) Narrative Procedure Note Renato Barrientos DO - 10/23/2024 11:24 AM CDT [facility] Patient Name: Jalen Bob Procedure Date: 10/23/2024 Date of : 1965 Attending MD: Renato Barrientos MD, Procedure: Colonoscopy Indications: High risk colon cancer surveillance: Personal history of adenomatous colonic polyps, Last colonoscopy: February 2019 Providers: Renato Barrientos MD Referring MD: Elver Beebe MD Medicines: Monitored Anesthesia Care Complications: No immediate complications. Procedure: Informed consent was obtained for the procedure, including moderate sedation after risks were discussed. Based on the pre-procedure assessment, including review of the patient's medical history, medications, allergies, and review of systems, the patient was deemed to be an appropriate candidate for sedation. A timeout was performed. Continuous ECG monitoring, pulse oximetry, blood pressure monitoring, and direct observation were performed. The Colonoscope was introduced through the anus and advanced to the terminal ileum. The colonoscopy was performed without difficulty. The patient tolerated the procedure well. The quality of the bowel preparation was good. Estimated Blood Loss: Estimated blood loss was minimal. Findings: The perianal examination was normal. A 4 mm polyp was found in the hepatic flexure. The polyp was flat. The polyp was removed with a jumbo cold forceps. Resection and retrieval were complete. Estimated blood loss was minimal. A 9 mm polyp was found in the transverse colon. The polyp was sessile. The polyp was removed with a cold snare. Resection and retrieval were complete. Estimated blood loss was minimal. Non-bleeding hemorrhoids were found during retroflexion. Diverticula were found in the sigmoid colon and descending colon. Retroflexion in the right colon was performed. Impression: - One 4 mm polyp at the hepatic flexure, removed with a jumbo cold forceps. Resected and retrieved. - One 9 mm polyp in the transverse colon, removed with a cold snare. Resected and retrieved. - Non-bleeding hemorrhoids. - Diverticulosis in the sigmoid colon and in the descending colon. Recommendation: - Await pathology results. Renato Barrientos MD 10/23/2024 11:24:38 AM This report has been signed electronically. Number of Addenda: [address]; [place] [address] Renato Barrientos DO GI PROCEDURE ORDERABLES Fin al Result * PATHOLOGY (10/23/2024 11:11 AM CDT) Only the most recent of2 resultswithin the time period is included. CASE REPORT Surgical Pathology Report Case: [id number] Authorizing Provider: Renato Barrientos DO Collected: 10/23/2024 11:11 AM Ordering Location: [facility] GI Lab [address] Received: 10/23/2024 02:16 PM Pathologist: Koby Scherer DO Specimens: A) - Hepatic flexure, polyp x1 B) - Colon, transverse, polyp x1 4:12 PM CDT [facility] FINAL DIAGNOSIS Large bowel, hepatic flexure polyp x 1, polypectomy: - Polypoid benign colonic mucosa with a lymphoid aggregate. Large bowel, transverse colon polyp x 1, polypectomy: - Polypoid benign colonic mucosa with mild surface hyperplastic change. 5 4:12 PM CDT [facility] at 1612 CDT GROSS DESCRIPTION The specimens are received in two containers each labeled Jalen Bob . Received in the first container additionally labeled hepatic flexure polyp x 1 is 1 piece of pink-rosas tissue measuring 0.4 x 0.2 x 0.2 cm. It is entirely submitted in cassette A1. Received in the second container additionally labeled transverse colon polyp x 1 is 1 piece of yellow-rosas tissue measuring 0.6 x 0.3 x 0.1 cm. It is entirely submitted in cassette B1. [facility] 5 4:12 PM CDT [facility] MICROSCOPIC DESCRIPTION The slides are labeled [id number] and Jalen Bob. Sections of the hepatic flexure polyp x 1 show polypoid benign colonic mucosa with a small lymphoid aggregate. No dysplasia or carcinoma is identified. Multiple H&E levels were examined. Sections of the transverse colon polyp x 1 show polypoid benign colonic mucosa with mild surface hyperplastic change. No dysplasia or carcinoma is identified. Multiple H&E levels were examined. 5 4:12 PM CDT [facility] OPERATIVE PROCEDURE 1: COLONOSCOPY 5 4:12 PM CDT [facility] CLINICAL INFORMATION screening Z86.0100-Hx of colonic polyps 5 4:12 PM CDT [facility] COMMENT Special stain, immunohistochemical, and/or in situ hybridization results are interpreted with controls that demonstrate appropriate staining reactions. Note on use of immunohistochemistry reagents and in situ hybridization probes: These tests were developed and their performance characteristics determined by [facility], Department of Laboratory Medicine. It has not been cleared or approved by the U.S. Food and Drug Administration. The FDA has determined that such clearance or approval is not necessary. The test is used for clinical purposes. It should not be regarded as investigational or for research. This laboratory is certified to perform high complexity testing. Frozen section/operating room consultation, gross examination and dissection, and case sign out may have been performed in part or completely in the following laboratories: [facility], CLIA #[id number] [address] [place] [address] [facility], CLIA #[id number] [address] [place] [address] [facility], CLIA #[id number] [address] [place] [address] This report was created with the [employer] voice-activated dictation system. Inherent to this system is the possibility of syntax, grammar, punctuation and other errors that could impact the interpretation of the report. If there are interpretative questions about aspects of this report, please contact the performing pathologist. 4:12 PM CDT [facility] Tissue (Hepatic flexure) Collection / Unknown 10/23/2024 11:11 AM CDT 10/23/2024 2:16 PM CDT Tissue specimen (specimen) TRANSVERSE COLON STRUCTURE / Unknown 10/23/2024 11:12 AM CDT 10/23/2024 2:16 PM CDT Renato Barrientos DO PATHOLOGY/CYTOLOGY ORDERABL ES Final Result [facility]# [id number] [facility] [address] * NM MYOCARD PERF IMAG SPECT MULT (09/10/2024 2:11 PM CDT) 09/10/2024 2:11 PM CDT Narrative INTERFACE SYSTEM - 09/10/2024 3:07 PM CDT HISTORY: Coronary disease RESTING EKG: Sinus rhythm PROCEDURE: The patient received Lexiscan 5 ml (0.1 mg Regadenoson) administered intravenously over 10 seconds followed b-v a 5 ml saline flush. Immediately after the Lexiscan injection, the radionuclide myocardial perfusion imaging agent was injected. The heart rate at rest is 71 beats per minute. Blood pressure at rest is 118/79. At completion the heart rate is 88 beats per minute. Blood pressure is 125/80. No ST-T wave changes were noted during the Lexiscan protocol. Minimal generalized symptoms during the Lexiscan stress test subsiding in recovery without treatment. The patient did not experience chest pain. CONCLUSION: 1. Minimal generalized symptoms during Lexiscan stress test quickly subsiding in the recovery stage without treatment. 2. No ST-T wave changes diagnostic for ischemia. 3. Normal hemodynamic response to Lexiscan infusion. 4. Radiopharmaceutical images are pending. TECHNIQUE: SPECT imaging was obtained after 6.2 mCi of Technetium-99m Sestamibi was given during rest and 17.9 Technetiurn-99m Sestamibi was given during stress. During stress. the patient was given 0.4 mg of Lexiscan. FINDINGS: There is normal perfusion of the radiopharmaceutical during both rest and stress imaging. The left ventricular size is normal. Gated SPECT reveals left ventricular systolic function is normal. The ejection fraction is calculated at 54%. SUMMARY: 1. Stress imaging reveals no evidence of ischemia. 2. Gated SPECT reveals normal left ventricular systolic function. The ejection fraction is calculated at 54%. 3. Supervising physician Malaika Procedure Note Eric Dai MD - 09/10/2024 HISTORY: Coronary disease RESTING EKG: Sinus rhythm PROCEDURE: The patient received Lexiscan 5 ml (0.1 mg Regadenoson) administered intravenously over 10 seconds followed b-v a 5 ml saline flush. Immediately after the Lexiscan injection, the radionuclide myocardial perfusion imaging agent was injected. The heart rate at rest is 71 beats per minute. Blood pressure at rest is 118/79. At completion the heart rate is 88 beats per minute. Blood pressure is 125/80. No ST-T wave changes were noted during the Lexiscan protocol. Minimal generalized symptoms during the Lexiscan stress test subsiding in recovery without treatment. The patient did not experience chest pain. CONCLUSION: 1. Minimal generalized symptoms during Lexiscan stress test quickly subsiding in the recovery stage without treatment. 2. No ST-T wave changes diagnostic for ischemia. 3. Normal hemodynamic response to Lexiscan infusion. 4. Radiopharmaceutical images are pending. TECHNIQUE: SPECT imaging was obtained after 6.2 mCi of Technetium-99m Sestamibi was given during rest and 17.9 Technetiurn-99m Sestamibi was given during stress. During stress. the patient was given 0.4 mg of Lexiscan. FINDINGS: There is normal perfusion of the radiopharmaceutical during both rest and stress imaging. The left ventricular size is normal. Gated SPECT reveals left ventricular systolic function is normal. The ejection fraction is calculated at 54%. SUMMARY: 1. Stress imaging reveals no evidence of ischemia. 2. Gated SPECT reveals normal left ventricular systolic function. The ejection fraction is calculated at 54%. 3. Supervising physician Perschbacher us Bj Cerrato MD NM ORDERABLES Final Result Performing Organization Address City/[facility] Co de Phone Number INTERFACE SYSTEM Refer to clinic/hospital department * NM PHARMACOLOGICAL STRESS TEST (09/10/2024 1:49 PM CDT) Narrative 09/10/2024 1:49 PM CDT Order information only. Exam was auto-finalized. us Bj Cerrato MD NM ORDERABLES Final Result * MA ECG ROUTINE ECG W/LEAST 12 LDS W/I&R (09/04/2024 10:31 AM CDT) Narrative [facility] - 09/04/2024 10:31 AM CDT Bj Cerrato MD 09/04/2024 10:45 AM Sinus rhythm Bj Cerrato MD ECG ORDERABLES Final Result Performing Organization Address [facility] Co de Phone Number [facility] CLIA# [id number] [facility] [address] [place] [address] * (ABNORMAL) CBC WITH DIFFERENTIAL (08/25/2024 8:48 AM CDT) Only the most recent of6 resultswithin the time period is included. Pathologist [facility] WBC 8.2 4.0 - 9.8 K/uL 08/25/2024 9:23 AM CDT [facility] RBC 3.66(L) 4.50 - 5.40 M/uL 08/25/2024 9:23 AM [employer] [facility] [place] [facility] - [facility] HEMOGLOBIN 11.1(L) 13.6 - 16.5 g/dL 08/25/2024 9:23 AM [employer] [facility] [place] [facility] HEMATOCRIT 33.5(L) 40.0 - 48.0 % 08/25/2024 9:23 AM [employer] [facility] [place] [facility] MCV 91.5 82.0 - 99.0 fL 08/25/2024 9:23 AM CDT [facility] [place] [facility] MCH 30.3 27.2 - 32.6 pg 08/25/2024 9:23 AM CDT [facility] [place] [facility] MCHC 33.1 31.5 - 35.5 g/dL 08/25/2024 9:23 AM [email or web address] LABORATORY SERVICES - [facility] RDW 13.9 11.5 - 14.5 % 08/25/2024 9:23 AM [email or web address] LABORATORY SERVICES - [facility] RDW-STDEV 46.5 37.1 - 48.7 fL 08/25/2024 9:23 AM [email or web address] [facility]ORATORY SERVICES - [facility] PLATELETS 206 140 - 350 K/uL 08/25/2024 9:23 AM [email or web address] [facility]ORY SERVICES - [facility] MPV 10.1 9.3 - 12.4 fL 08/25/2024 9:23 AM [email or web address] [facility]ORY SERVICES - [facility] NEUTROPHILS 67 % 08/25/2024 9:23 AM [email or web address] [facility]ORY [facility] - [facility] LYMPHOCYTES 14 % 08/25/2024 9:23 AM [employer] [facility] [place] [facility] MONOCYTES 13 % 08/25/2024 9:23 AM [employer] [facility] [place] [facility] EOSINOPHILS 5 % 08/25/2024 9:23 AM [email or web address] LABORATORY SERVICES - . [facility] BASOPHILS 0 % 08/25/2024 9:23 AM [employer] LABORATORY SERVICES - . [facility] IMMATURE GRANULOCYTES 1 % 08/25/2024 9:23 AM [email or web address] LABORATORY SERVICES - [facility] Comment:IG (Immature Granulo cyte) count includes Metamyelocytes, Myelocytes, and Promyelocytes NEUTROPHIL ABSOLUTE 5.46 1.90 - 7.00 K/uL 08/25/2024 9:23 AM CDT [facility] - [facility] LYMPHOCYTE ABSOLUTE 1.17 0.70 - 4.50 K/uL 08/25/2024 9:23 AM CDT [facility] SERVICES - . [facility] MONOCYTE ABSOLUTE 1.09 0.10 - 1.30 K/uL 08/25/2024 9:23 AM CDT [facility] SERVICES - [facility] EOSINOPHIL ABSOLUTE 0.38 0.00 - 0.70 K/uL 08/25/2024 9:23 AM CDT [facility] - . [facility] BASOPHILS ABSOLUTE 0.03 0.00 - 0.20 K/uL 08/25/2024 9:23 AM CDT [facility] SERVICES - . [facility] IMMATURE GRANULOCYTES ABSOLUTE 0.05(H) 0.00 - 0.03 K/uL 08/25/2024 9:23 AM CDT [facility] - [facility] Blood Venipuncture / Unknown 08/25/2024 8:48 AM CDT 08/25/2024 9:13 AM CDT Winsome TRAVIS HEMATOLOGY ORDERABLES Fin al Result [facility] [employer] [facility] CLIA# [id number] [address] [facility] [place], [place] [address] * PHOSPHORUS (08/25/2024 8:48 AM CDT) Only the most recent of5 resultswithin the time period is included. PHOSPHORUS 3.8 2.5 - 4.5 mg/dL 08/25/2024 10:00 AM CDT [facility]ORY [facility] Blood Venipuncture / Unknown 08/25/2024 8:48 AM CDT 08/25/2024 9:13 AM CDT Winsome TRAVIS CHEMISTRY ORDERABLES Tina l Result [facility] [employer] [facility] CLIA# [id number] [address] [place] [address] * MAGNESIUM LEVEL (08/25/2024 8:48 AM CDT) Only the most recent of5 resultswithin the time period is included. MAGNESIUM 2.0 1.6 - 2.6 mg/dL 08/25/2024 10:00 AM T [facility]ORY [facility] Blood Venipuncture / Unknown 08/25/2024 8:48 AM CDT 08/25/2024 9:13 AM CDT us An Julianna TRAVIS CHEMISTRY ORDERABLES Tina rg Result [facility] [employer] [facility]# [id number] [address] [place] [address] * (ABNORMAL) BASIC METABOLIC PANEL (08/25/2024 8:48 AM CDT) Only the most recent of5 resultswithin the time period is included. SODIUM 140 136 - 145 mmol/L 08/25/2024 10:00 AM [facility]AT[facility] SERVICES [facility]. [facility] POTASSIUM 3.9 3.5 - 5.0 mmol/L 08/25/2024 10:00 AM [facility]. [facility] CHLORIDE 102 98 - 107 mmol/L 08/25/2024 10:00 AM [facility] - [facility] CO2 28 22 - 29 mmol/L 08/25/2024 10:00 AM [facility] - . [facility] CALCIUM 9.0 8.6 - 10.2 mg/dL 08/25/2024 10:00 AM T [facility]ORY SERVICES - [facility] BUN 10 6 - 20 mg/dL 08/25/2024 10:00 AM [facility] SERVICES [facility]. [facility] CREATININE 0.77 0.67 - 1.17 mg/dL 08/25/2024 10:00 AM [facility] SERVICES [facility]. [facility] GLUCOSE 131(H) 74 - 99 mg/dL 08/25/2024 10:00 AM CDT [facility] GFR >60 >=60 mL/min/1.7 3 sq meter 08/25/2024 10:00 AM CDT [facility] [employer] [facility] Comment:eGFR calculated with 2020 CKD-EPI equation. Vegetarian diet, extremely high or low muscle mass, and may affect results. Cystatin C with Glomerular Filtration Rate is a suitable alternative for these patients. ANION GAP 10 8 - 16 mmol/L 08/25/2024 10:00 AM CDT [facility] Blood Venipuncture / Unknown 08/25/2024 8:48 AM CDT 08/25/2024 9:13 AM CDT us An Julianna TRAVIS CHEMISTRY ORDERABLES Tina rg Result [facility]# [id number] [address] [facility] [place] [address] * MA ANES INSERT ENDOTRACHEAL AIRWAY (08/21/2024 7:44 AM CDT) Narrative Blanca Orosco AA-C - 08/21/2024 7:44 AM CDT Blanca Orosco AA-C 08/21/2024 8:21 AM Airway Date/Time: 08/21/2024 7:44 AM Location: OR Plan: elective intubation Patient Identity Confirmed by: Verbally with patient and armband Airway: not difficult Staffing Performed: SIGNALS INTELLIGENCE ANALYSIS MANAGER/CAA Authorized by: Allison Fall MD Performed by: Blanca Orosco AA-C Indications and Patient Condition: Indications for Airway Management: Anesthesia and airway protection Sedation Level: general anesthesia Preoxygenated: yes Patient Position: Sniffing Mask Difficulty Assessment: 0 - not attempted Plan to extubate at end of case: Yes Final Airway Details: Final Airway Type: Endotracheal airway ETT Cuffed: Yes Cuff Volume (mL): 8 Technique Used for Successful ETT Placement: Direct laryngoscopy Devices/Methods Used in Placement: Cricoid pressure and intubating stylet Blade Type: straight blade Blade Size: 2 Insertion Site: Oral ETT Size (mm): 7.0 Measured from: Lips ETT to Lips (cm): 22 Tube secured with: Tape and bite block Placement Verified by: auscultation, end tidal CO2 and chest rise Cormack-Lehane Classification: Grade I - full view of glottis Number of Attempts at Approach: 1 Additional Procedure Information: atraumatic and dentition unchanged Allison Fall MD PROCEDURE/MINOR SURGICA L ORDERABLES Final Result * URINALYSIS WITH REFLEX MICROSCOPIC (08/21/2024 12:03 AM T) COLOR UA Pale Yellow Pale to Dark Yellow 08/21/2024 12:19 AM [facility] [place] [facility] CLARITY UA Clear Clear 08/21/2024 12:19 AM [facility] [place] [facility] - [facility] SPECIFIC GRAVITY UA 1.008 1.003 - 1.035 08/21/2024 12:19 AM [facility] [employer] [facility] PH UA 6.0 5.0 - 8.0 08/21/2024 12:19 AM [facility] [employer] SERVICES [facility] LEUKOCYTE ESTERASE UA Negative Negative 08/21/2024 12:19 AM [facility] [place] [facility] NITRITE UA Negative Negative 08/21/2024 12:19 AM [facility] [place] [facility] - . [facility] PROTEIN UA Negative Negative 08/21/2024 12:19 AM [facility] [place] [facility] GLUCOSE UA Negative Negative 08/21/2024 12:19 AM [facility] [place] [facility] KETONES UA Negative Negative 08/21/2024 12:19 AM [facility] [place] [facility]. [facility] UROBILINOGEN UA Normal <2.0 mg/dL 12:19 AM [facility] [place] [facility] BILIRUBIN UA Negative Negative 08/21/2024 12:19 AM [facility] [employer] SERVICES [facility] BLOOD UA Negative Negative 08/21/2024 12:19 AM [facility] [employer] SERVICES [facility]. [facility] Urine URINE SPECIMEN OBTAINED BY CLEAN CATCH PROCEDURE / Unknown Collection / Unknown 08/21/2024 12:03 AM CDT 08/21/2024 12:09 AM CDT Harsha Segura IV, DO URINE ORDERABLES Final Result Performing Organization Address [facility]/ZIP Co de Phone Number [facility] CLIA# [id number] [facility] [place] [address] [place] [address] * PTT (08/20/2024 5:05 AM CDT) PTT 30.0 24.4 - 36.4 seconds 08/20/2024 5:39 AM CDT [facility] [employer] [facility] Comment: PTT Therapeutic Range: Heparin Level PTT (seconds) <0.10 units/mL <55.8 0.10 - 0.30 units/mL 55.8 - 74.3 0.30 - 0.70 units/mL* 74.3 - 111.2* 0.70 - 1.00 units/mL 111.2 - 138.9 *corresponds to therapeutic range for unfractionated heparin Blood Venipuncture / Unknown 08/20/2024 5:05 AM CDT 08/20/2024 5:12 AM CDT Harsha Segura IV, DO HEMATOLOGY ORDERA BLES Final Result Performing Organization Address [facility] de Phone Number [facility] [employer] [facility] CLIA# [id number] [facility] [address] * (ABNORMAL) PROTIME-INR (08/20/2024 5:05 AM CDT) PROTIME 15.8(H) 12.7 - 15.1 Seconds 08/20/2024 5:39 AM CDT [facility]ORY [facility] INR 1.3(H) 0.9 - 1.1 08/20/2024 5:39 AM CDT [facility] [employer] [facility] Blood Venipuncture / Unknown 08/20/2024 5:05 AM CDT 08/20/2024 5:12 AM CDT Narrative [facility] - 08/20/2024 5:39 AM CDT INR Therapeutic Range: Adult: 2.0 - 3.0 for pulmonary embolism or prophylaxis against venous thrombosis or systemic embolization. 2.0 - 3.0 for patients with tissue heart valves. 2.5 - 3.5 for patients with mechanical heart valves or post MD. Pediatric (12 years and under): 1.5 - 3.0 Although the target range in children is not well established, INR values of 1.5 - 3.0 are recommended for most patients. Higher values have been used in children with prosthetic cardiac valves and hereditary clotting disorders. (<3 days) therapeutic ranges have not been established. us Harsha Segura IV, DO HEMATOLOGY ORDERA BLES Final Result [facility] [employer] [facility]# [id number] [address] [place] [address] * CT ABDOMEN PELVIS W CONTRAST (08/20/2024 3:02 AM CDT) Anatomical Region Laterality Modality Abdomen Computed Tomogra phy 08/20/2024 2:41 AM CDT Impressions 08/20/2024 3:32 AM CDT IMPRESSION: 1. Acute appendicitis with a stone in the base of the appendix. Hypoenhancement of the appendix wall may represent wall necrosis. Recommend surgical consultation. 2. Small volume Free fluid and inflammation surrounding the appendix with no discrete drainable fluid collection. 3. Chronic atrophy of the posterior segment of the right hemiliver may be related to chronic portal vein occlusion. Recommend nonemergent follow-up liver MRI. DICTATION LOCATION: Location 4 Narrative 08/20/2024 3:32 AM CDT EXAMINATION: CT ABDOMEN PELVIS W CONTRAST DATE: 08/20/2024 3:21 AM HISTORY: Acute appendicitis. TECHNIQUE: Transaxial computed tomographic images of the abdomen and pelvis were obtained following the uneventful administration of 90 ml Isovue 370 according to standard protocol. The examination was performed with the adjustment of mA according to the patient size and/or the use of Iterative Reconstruction Technique. COMPARISON: None FINDINGS: LUNG BASES: Lung bases are clear. LIVER: There is hypertrophy of the left hemiliver and atrophy of the right hemiliver. The right posterior portal vein is not well-opacified. BILE DUCTS: Nondilated. GALLBLADDER: Within normal limits. SPLEEN: Within normal limits. PANCREAS: Normal parenchymal bulk and contour. No duct dilation or inflammation. ADRENALS: Normal. KIDNEYS/URETERS: Small right renal cyst. No hydronephrosis. Kidneys otherwise appear normal. Urinary bladder appears unremarkable. BOWEL: There is acute appendicitis. The appendix is dilated. There is a calcified stone at the base of the appendix. There is edema and fluid surrounding the appendix. There is gas in the distal aspect of the appendix. The appendiceal wall is heterogeneously hypoenhancing. No well-defined fluid collection but there is free fluid adjacent to the appendix. No bowel obstruction PERITONEUM/RETROPERITONEUM: Small volume free fluid in the right lower quadrant associated with the appendix. There is a peritoneal calcifications in the pelvis adjacent to the rectum. There is a fat-containing umbilical hernia. PELVIC ORGANS: Prostate calcifications are noted. VESSELS: Moderate atherosclerosis. ABDOMINAL WALL: Within normal limits. BONES: No acute fracture. No suspicious osseous lesions. Procedure Note Ta Sanders MD - 08/20/2024 EXAMINATION: CT ABDOMEN PELVIS W CONTRAST DATE: 08/20/2024 3:21 AM HISTORY: Acute appendicitis. TECHNIQUE: Transaxial computed tomographic images of the abdomen and pelvis were obtained following the uneventful administration of 90 ml Isovue 370 according to standard protocol. The examination was performed with the adjustment of mA according to the patient size and/or the use of Iterative Reconstruction Technique. COMPARISON: None FINDINGS: LUNG BASES: Lung bases are clear. LIVER: There is hypertrophy of the left hemiliver and atrophy of the right hemiliver. The right posterior portal vein is not well-opacified. BILE DUCTS: Nondilated. GALLBLADDER: Within normal limits. SPLEEN: Within normal limits. PANCREAS: Normal parenchymal bulk and contour. No duct dilation or inflammation. ADRENALS: Normal. KIDNEYS/URETERS: Small right renal cyst. No hydronephrosis. Kidneys otherwise appear normal. Urinary bladder appears unremarkable. BOWEL: There is acute appendicitis. The appendix is dilated. There is a calcified stone at the base of the appendix. There is edema and fluid surrounding the appendix. There is gas in the distal aspect of the appendix. The appendiceal wall is heterogeneously hypoenhancing. No well-defined fluid collection but there is free fluid adjacent to the appendix. No bowel obstruction PERITONEUM/RETROPERITONEUM: Small volume free fluid in the right lower quadrant associated with the appendix. There is a peritoneal calcifications in the pelvis adjacent to the rectum. There is a fat-containing umbilical hernia. PELVIC ORGANS: Prostate calcifications are noted. VESSELS: Moderate atherosclerosis. ABDOMINAL WALL: Within normal limits. BONES: No acute fracture. No suspicious osseous lesions. IMPRESSION: 1. Acute appendicitis with a stone in the base of the appendix. Hypoenhancement of the appendix wall may represent wall necrosis. Recommend surgical consultation. 2. Small volume Free fluid and inflammation surrounding the appendix with no discrete drainable fluid collection. 3. Chronic atrophy of the posterior segment of the right hemiliver may be related to chronic portal vein occlusion. Recommend nonemergent follow-up liver MRI. DICTATION LOCATION: Location 4 Harsha Segura IV, DO CT ORDERABLES F inal Result * (ABNORMAL) COMPREHENSIVE METABOLIC PANEL (08/20/2024 12:55 AM CDT) Pathologist [facility] SODIUM 138 136 - 145 mmol/L 08/20/2024 1:33 AM CDT [facility] [place] [facility] POTASSIUM 4.1 3.5 - 5.0 mmol/L 08/20/2024 1:33 AM CDT [facility] [place] [facility] CHLORIDE 99 98 - 107 mmol/L 08/20/2024 1:33 AM CDT [facility] [place] [facility] - . [facility] CO2 26 22 - 29 mmol/L 08/20/2024 1:33 AM CDT [facility] [place] [facility] - . [facility] CALCIUM 9.4 8.6 - 10.2 mg/dL 08/20/2024 1:33 AM CDT [facility] [place] [facility] - . [facility] BUN 14 6 - 20 mg/dL 08/20/2024 1:33 AM CDT [facility] [place] [facility] - . [facility] CREATININE 0.74 0.67 - 1.17 mg/dL 08/20/2024 1:33 AM CDT [facility] [place] [facility] - . [facility] GLUCOSE 114(H) 74 - 99 mg/dL 08/20/2024 1:33 AM CDT [facility] [place] [facility] - . [facility] TOTAL PROTEIN 6.6(L) 6.7 - 8.6 g/dL 08/20/2024 1:33 AM [facility] ALBUMIN 4.3 3.5 - 5.2 g/dL 08/20/2024 1:33 AM [facility] BILIRUBIN TOTAL 0.7 0.0 - 1.2 mg/dL 08/20/2024 1:33 AM T [facility] ALKALINE PHOSPHATASE 71 40 - 129 U/L 08/20/2024 1:33 AM T [facility] AST 20 <41 U/L 08/20/2024 1:33 AM [facility] ALT 23 <42 U/L 08/20/2024 1:33 AM [facility] GFR >60 >=60 mL/min/1.7 3 sq meter 08/20/2024 1:33 AM [facility] Comment:eGFR calculated with 2020 CKD-EPI equation. Vegetarian diet, extremely high or low muscle mass, and may affect results. Cystatin C with Glomerular Filtration Rate is a suitable alternative for these patients. ANION GAP 13 8 - 16 mmol/L 08/20/2024 1:33 AM [facility] Blood Venipuncture / Unknown 08/20/2024 12:55 AM CDT 08/20/2024 12:55 AM CDT Narrative [facility] - 08/20/2024 1:33 AM CDT Samples containing indocyanine green cause interferences on Total and/or Direct Bilirubin and must not be measured. us Harsha Segura IV, DO CHEMISTRY ORDERAB LES Final Result [facility] CLIA# [id number] 8 [facility] [address] [place] [address] * TYPE AND SCREEN (08/20/2024 12:45 AM CDT) ABO GROUP A 08/20/2024 1:59 AM [facility] RH (D) TYPE Positive 08/20/2024 1:59 AM CDT [facility] LAB[facility]ATORY SERVICES [facility] ANTIBODY SCREEN Negative 08/20/2024 1:59 AM CDT [facility]ORY [facility] Blood Venipuncture / Unknown 08/20/2024 12:45 AM CDT 08/20/2024 12:45 AM CDT Harsha Segura IV, DO BLOOD BANK ORDERA BLES Edited Result - Final [facility] LABORATORY SERVICES -- [facility] CLIA# [id number] [address] [facility] [place] [address] * CT LUNG SCREENING (LDCT BASELINE OR ANNUAL) (06/27/2024 8:19 AM CDT) Anatomical Region Laterality Modality Chest Computed Tomogra phy 06/27/2024 8:12 AM CDT Impressions 06/30/2024 7:16 PM CDT IMPRESSION: 1. Lung-RADS Category 2S: Benign appearance or behavior 2. Moderate coronary artery occasions. 3. Morphologic features that can be seen in hepatic fibrosis/cirrhosis. This could be further evaluated with ultrasound as clinically indicated. RECOMMENDATIONS: Continue annual screening with LDCT in 12 months. DICTATION LOCATION: Location 4 Narrative 06/30/2024 7:[address] LUNG SCREENING (LDCT BASELINE OR ANNUAL) 06/27/2024 8:19 AM INDICATION: High-risk screening for lung cancer. TECHNIQUE: Axial CT images were obtained though the chest without IV contrast using a low-dose technique. Doses expected from this technique are typically less than 3 mGy. CTDIvol of 2.0 mGy and DLP of 90 mGy-cm. The examination was performed with the adjustment of mA according to the patient size and/or the use of Iterative reconstruction technique. LIMITATIONS: Low-dose, noncontrast technique limits evaluation of the solid viscera and mediastinum. COMPARISON: CT chest angiography 03/22/2015 FINDINGS: PULMONARY FINDINGS: Lung nodules or findings of lung cancer: 2 mm left upper lobe pulmonary nodule (series 8, image 159). 3 mm left upper lobe pulmonary nodule (series 8, image 399). Smoking-related findings: Mild upper lobe emphysema. Other findings: The heart size is within normal limits. No pericardial effusion. Moderate burden of calcified coronary artery disease. The thoracic aorta is normal in caliber. Morphologic features suggestive of hepatic fibrosis/cirrhosis including mild surface nodularity, relative atrophy of the right hepatic lobe and enlargement of the left lateral section. Elver Sepulveda Ramirez DO CT ORDERABLES Final Result from Last 3 Months or Most Recently Relevant to Health Maintenance Insurance [employer] Commercial RX [employer] (INTERNAL) [facility] [employer] RX Member Subscriber Plan / Payer (Ef fective 2024-Present) Name:DionyJalen rangel Relation to Subscriber:Not on file Name:DwightJalen Subscriber ID:Not on file Date of :1965 (Work) Payer ID:Not on file Type:Not on file Address: [place] COVID19 [facility] [employer] Insurance [employer] Advance Directives For more information, please contact: [phone] * Full Code (Latest Code Status on File) Date Activated Date Inactivated Comments 10/23/2024 9:26 AM 10/23/2024 1:52 PM * Full Code Date Activated Date Inactivated Comments 08/20/2024 6:08 AM 08/25/2024 1:00 PM * Full Code Date Activated Date Inactivated Comments 03/04/2019 10:23 AM 03/05/2019 4:08 PM * Full Code Date Activated Date Inactivated Comments 03/04/2019 6:16 AM 03/04/2019 10:23 AM * Full Code Date Activated Date Inactivated Comments 10/30/2017 3:53 PM 10/31/2017 6:34 PM Care Teams Asbestos Brake Lining Finisher Relationship Specialty Start Date End Date Elver Ramirez, [address] [address] PCP - General Family Practice 03/08/13
--- OUTSIDE RECORDS SUMMARY | 2024-11-08 14:15 | XMS_ITS | Encounter Summary ---
Author Organization [facility] Address [address] [place] [address] Care Team Providers Care Cement Breaker Name Role Phone Elver Ramirez DO Primary Care Provider [phone] Encounter Details Date Type Department Care Team (Late Contact Info) Description 11/07/2024 Results Follow-Up [facility] Gastroenterology [facility] [address] [address] Renato Barrientos DO [address] [address] PATHOLOGY Social History Tobacco Use Types Packs/Day Years Used Date Smoking Tobacco: Former Cigarettes 1 30 Passive Smoke Exposure: Past Smokeless Tobacco: Never Comments:Quit May, 2024 Alcohol Use Standard Drinks/Week Comments Yes 4 (1 standard drink = 0.6 oz pur e alcohol) daily to weekly Sex and Gender Information Value Date Recorded Sex Assigned at Not on file Legal Sex Male 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 documented in this encounter Plan of Treatment Upcoming Encounters Date Type Department Care Team (Late Contact Info) Description 01/02/2025 9:30 AM CDT Initial consult [facility] Hepatology [address] [place] [address] Edd Stark MD [address] [facility] [place] [address] 09/05/2025 10:45 AM CDT Office Visit [facility] Heart and Vascular At [facility] [address] [place] [address] Bj Cerrato MD [address] [place] [address] documented as of this encounter Visit Diagnoses Not on filedocumented in this encounter Care Teams Cement Breaker Relationship Specialty Start Date End Date Elver Ramirez, [address] [facility] [address] [place] [address] PCP - General Family Practice 03/08/13 documented as of this encounter
--- OUTSIDE RECORDS SUMMARY | 2024-11-08 14:15 | XMS_ITS | Referral Summary ---
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
--- OUTSIDE RECORDS SUMMARY | 2024-11-08 14:15 | XMS_ITS | Encounter Summary ---
Author Organization [facility] Address [address] [place] [address] Care Team Providers Care Flow Trader Name Role Phone Ashley Dean DO Primary Care Provider [phone] Encounter Details Date Type Department Care Team (Late st Contact Info) Description 09/11/2024 Results Follow-Up [facility] Heart and Vascular At [facility] [address] [place] [address] Bj Cerrato MD [address] [place] [address] [address] [place] [address] [place] MYOCARD PERF IMAG SPECT MULT Social History Tobacco Use Types Packs/Day Years Used Date Smoking Tobacco: Former Cigarettes 1 30 Passive Smoke Exposure: Past Smokeless Tobacco: Never Comments:Quit May, 2024 Alcohol Use Standard Drinks/Week Comments Yes 4 (1 standard drink = 0.6 oz pur e alcohol) daily to weekly Sex and Gender Information Value Date Recorded Sex Assigned at Not on file Legal Sex Male 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 - Lexiscan - Of note he has lost 70 pounds through extensive efforts - Continue Xarelto for hx b/l PE and LLE DVT - Continue ARB for HTN - Continue statin for HLD and CAC - 1 year f/u documented in this encounter Plan of Treatment Upcoming Encounters Date Type Department Care Team (Late st Contact Info) Description 01/02/2025 9:30 AM CDT Initial consult [facility] Hepatology [address] [place] [address] Edd Stark MD [address] [facility] [address] [facility] [place] [address] 09/05/2025 10:45 AM CDT Office Visit [facility] Heart and Vascular At [facility] [address] [place] [address] Bj Cerrato MD [address] [facility] [address] [place] [address] documented as of this encounter Visit Diagnoses Not on filedocumented in this encounter Care Teams Flow Trader Relationship Specialty Start Date End Date Elver Ramirez, DO [address] [facility] [address] [place] [address] PCP - General Family Practice 03/08/13 documented as of this encounter
--- OUTSIDE RECORDS SUMMARY | 2024-11-08 14:15 | XMS_ITS | Encounter Summary ---
Author Organization [facility] Address [address] [place] [address] Care Team Providers Care Tubing Assembler Name Role Phone Apollo Chaim WAGNER Primary Care Provider [phone] Aplolo Chaim DO Unavailable [phone] Jany Gutierrez MINING DETAIL DRAFTSPERSON-SILK WEAVER Unavailable [phone] Mabel Cassidy Unavailable [phone] Encounter Details Date Type Department Care Team (Late st Contact Info) Description 04/25/2022 [facility] Outpatient Visit [facility] Orthopedics - Radiology [address] [place] [address] [place], [place] [id number] Document, Scanned Social History Tobacco Use Types Packs/Day Years Used Date Smoking Tobacco: Every Day Cigarettes 1 35 Smokeless Tobacco: Never Alcohol Use Standard Drinks/Week Comments Yes 0 (1 standard drink = 0.6 oz pur e alcohol) AUDIT-C Answer Date Recorded Q1: How often do you have a drink containing alcohol? 4 or more times a week 02/19/2020 Q2: How many drinks containi ng alcohol do you have on a typical day when you are drinking? 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 Legal Sex Male 10:07 AM CDT Gender Identity Male 05/20/2020 10:54 AM INSPECTOR MULTIFOCAL LENS Sexual Orientation Straight 05/20/2020 10 :54 AM INSPECTOR MULTIFOCAL LENS documented as of this encounter Plan of Treatment Not on file documented as of this encounter Visit Diagnoses Not on filedocumented in this encounter Additional Health Concerns Infection Onset Date Last Indicated Resolved Time COVID-19 Under Investigation 12/15/2022 12/15/2022 12/15/2022 3:17 PM CDT documented as of this encounter Care Teams Tubing Assembler Relationship Specialty Start Date End Date Chaim Bustillos DO [address] [address] PCP - General Family Medicine 02/12/20 Chaim Bustillos DO [address] [address] PCP - Attributed-[employer] [facility] ST[facility] 08/08/22 12/27/23 Jany Gutierrez, MICHELLE-SILK WEAVER [address] [facility] [address] [id number] Nurse Practitioner Internal Medicine Sleep Medicine 04/26/23 Mabel Cassidy Care Coordination Specialist Care Management 11/13/23 11/13/23 documented as of this encounter
--- NOTE | 2024-11-08 14:24 | W.ED.WOUNDLC ---
HPI - Wound/Laceration General: Chief Complaint: Wound/Laceration Stated Complaint: lt arm lac Time Seen by Provider: 11/08/24 14:10 Source: patient Mode of arrival: ambulatory Limitations: no limitations History of Present Illness: Patient is a nice 59-year-old male presents to ED today for evaluation of a laceration to his left wrist that he sustained just prior to arrival after accidentally cutting it with a knife. Tetanus is up-to-date. Onset (ago): hour(s) Extremity Location: Left: wrist Place: home Patient tetanus UTD: Yes Context: accidental Associated symptoms: Reports no associated symptoms Treatments prior to arrival: bandage Related Data Previous Rx's ?Medication ?Instructions ?Recorded cephalexin 500 mg capsule 500 mg PO Q6H 7 days #28 caps 11/08/24 Allergies Allergy/AdvReac Type Severity Reaction Status Date / Time No Known Allergies Allergy Verified 11/08/24 14:18 Review of Systems Musc: Reports: joint pain (L wrist laceration); Denies: extremity pain, extremity swelling, joint swelling, joint redness, joint warmth or limited range of motion Skin/Breast: Reports: other (laceration) Neuro: Denies: numbness in extremities or sensory changes Physical Exam Const: COMMON NORMALS: no acute distress, average body habitus, patient oriented x3, no limitations, healthy appearing, alert and well nourished Extremity: COMMON NORMALS: full ROM and capillary refill normal GENERAL: Yes normal exam except as noted LEFT UPPER EXTREMITY: Yes wrist (2cm laceration volar L wrist with tendon involvement ) Left wrist: Yes ROM (seemingly normal ROM of finger digits), Yes neurovascular exam (normal) and Yes other (no active bleeding, normal cap refill, radial pulse palpated) Neuro: COMMON NORMALS: patient oriented x3, moves all extremities, no focal motor deficits and no sensory deficits noted SENSORIUM/ORIENTATION: Yes alert Procedures Laceration Laceration 1: Site: upper extremity (wrist) Side (If applicable): left Size (cm): 2.0 Description: linear Depth: simple, single layer and involves tendon Local Anesthetic: lidocaine 2% Amount of anesthesia used (mL): 1.5 Pre-repair: wound explored and irrigated extensively Skin layer closed with: nylon Size (cm): 4-0 Number of sutures: 3 Technique: simple, interrupted Course Vital Signs: Vital signs: Vital Signs Temperature 97.5 F L 11/08/24 14:13 Pulse Rate 73 11/08/24 14:13 Respiratory Rate 16 11/08/24 14:13 Blood Pressure 144/72 11/08/24 14:13 Pulse Oximetry 99 11/08/24 14:13 Oxygen Delivery Me thod Room Air 11/08/24 14:13 MDM - Wound/Laceration Medical Decision Making Patient has a left volar laceration with tendon involvement. Wound was copiously irrigated and repaired as documented. He will be placed on antibiotics. Will splint. They are from [place] will plan on traveling back home tomorrow. They agree to follow-up with hand surgery/orthopedics for tendon repair Differential Diagnosis Likely laceration No radiology studies performed this visit Discharge Plan Discharge Patient Disposition: Home Clinical Impression: Laceration of left wrist with tendon involvement Qualifiers: Encounter type: initial encounter Qualified Code(s): S61.512A - Laceration without foreign body of left wrist, initial encounter Condition: Stable Prescriptions: New cephalexin 500 mg capsule 500 mg PO Q6H 7 Days Qty: 28 0RF Discharge Orders: Discharge ED (Routine); Ordered 11/08/24 Ordered By: Nereida Ibarra Patient Instructions: Laceration (DC), Tendon Laceration (ED), Patient Portal & Rachael Instructions Activity Restrictions/Additional Instructions: As we discussed, you need to stay in your splint at all times apart from showering or bathing. It is imperative that you follow-up with hand surgery/orthopedics when you return home tomorrow so that they can re-evaluate you and repair tendon. Keep wound/laceration clean with warm soap and water twice daily. Monitor for signs of infection such as redness, swelling, increased pain, or drainage. Please seek medical re-evaluation if these occur. If you received sutures today these will need to be removed (unless you were told by the provider that they are absorbable). The provider should have discussed with you the length of time until removal-7 DAYS. Please fill your antibiotics and start them immediately. Print Language: Bolivian Coding Level of Care Code ED Under Water Assistant for Mary Coombs
== END 2024-11-08 15:02 | disposition home or self-care (01) ==
PROVIDERS: Emergency Provider Physician Assistant
DX: S61.512A Laceration without foreign body of left wrist, initial encounter (principal); W26.0XXA Contact with knife, initial encounter
CPT/HCPCS: 13120; 29125; 99283